=== PATIENT | male | born 1980 | race Caucasian/White ===

== ENCOUNTER 2018-04-08 22:01 | Inpatient (IN) | payer BC ==
[~2018-04-08] VITALS: Ht 175.3 cm; Wt 84.0 kg
[~2018-04-08 22:01] MED LIST: ADVIL200 MG PO
[2018-04-09] MEDS ORDERED: TYLENOL EXTRA500 MG PO (05:56)
[2018-04-09] MEDS ORDERED: UNISOM50 MG PO (05:58)
[2018-04-09 05:59] VITALS: BP 130/84
[2018-04-09] MEDS ORDERED: CYCLOBENZAPRINE10 MG PO (12:24)
[2018-04-09] MEDS ORDERED: HYDROCODON-ACE1 EAC9 PO (12:24)
[2018-04-09 13:30] VITALS: BP 115/60
[2018-04-09 14:41] LABS: HEMATOCRIT 36.1 % (38.0-50.0); MCH 29.7 PG (29.0-34.0); MCHC 34.1 G/DL (30.0-36.0); MCV 87.2 FL (86-99); PLATELET COUNT 232 K/uL (156-360); RBC DIS.WIDTH-CV 11.9 % (11.8-14.6); RBC DIS.WIDTH-SD 38.5 % (39-53); WHITE BLOOD COUNT 17.3 K/uL (4.1-10.2)
[2018-04-09 14:51] LABS: HEMOGLOBIN 12.3 G/DL (12.5-16.6); RED BLOOD COUNT 4.14 M/uL (4.00-5.50)
[2018-04-09 15:04] LABS: CHLORIDE 105 MEQ/L (99-109); CREATININE 0.9 MG/DL (0.6-1.3); GFR ESTIMATE (CALCULATED) > 59 mL/min/ (58.99-99999); GLUCOSE 134 mg/dL (70-99); SODIUM 137 MEQ/L (136-147); UREA NITROGEN (BUN) 17 mg/dL (9-23)
[2018-04-09 15:31] VITALS: BP 121/70
[2018-04-09 20:00] VITALS: BP 125/66
[2018-04-10] VITALS: BP 108/60
[2018-04-10 00:03] VITALS: BP 108/60
[2018-04-10 03:40] VITALS: BP 112/71
[2018-04-10 07:23] VITALS: BP 117/61
[2018-04-10 08:00] VITALS: BP 117/62
== END 2018-04-10 09:10 | disposition home or self-care (01) | DRG 460 ==
LOC: ENRESERV 22:01 → 3EAST 04-09 05:17 → 2SOUTH 04-09 05:17 → ENRESERV 04-09 12:54 → 3EAST 04-09 13:14 → 2SOUTH 04-09 14:04 → 3EAST 04-10 09:10
PROVIDERS: Neurological Surgery
PROC: 0SG30AJ Fusion of Lumbosacral Joint with Interbody Fusion Device, Posterior Approach, Anterior Column, Open Approach (ICD-10-PCS; principal; 2018-04-09)
DX: M43.17 Spondylolisthesis, lumbosacral region (principal); M47.9 Spondylosis, unspecified; M48.07 Spinal stenosis, lumbosacral region; G58.9 Mononeuropathy, unspecified
CPT/HCPCS: 36415; 72100; 76000; 80048; 85025; 85027; 86850; 86900; 86901; C1821; J0131; J0330; J0690; J1100; J1170; J1885; J2250; J2405; J3010; J3370; J3480; J7643; P9045